=== PATIENT | female | born 2000 | race Caucasian/White ===

== ENCOUNTER 2021-06-11 22:12 | Emergency (ER) | payer OTHER, SELFPAY ==
[2021-06-11 22:47] LABS: Urine Blood Negative (Negative); Urine Glucose Negative (Negative); Urine Protein Negative (Negative); Urine Specific Gravity 1.015 (1.005-1.030); Urine pH 8.5 (5.0-7.0)
[2021-06-11 23:01] LABS: Urine Specific Gravity/Preg 1.015 (1.005-1.030)
[2021-06-11 23:26] LABS: Absolute Lymphocytes (CBC) 1.7 K/uL (0.7-4.9); Basophils % 0.4 % (0-1.3); Hematocrit 40.9 % (36.0-45.0); Lymphocytes % 23.1 % (15.3-44.8); MPV 7.1 fL (7.6-11.3); RBC Red Blood Cell Count 4.31 M/uL (3.86-4.86)
[2021-06-11 23:27] LABS: Protime INR 1.16
[2021-06-11 23:40] LABS: ALT/SGPT 32 U/L (12-78); AST/SGOT 20 U/L (15-37); Albumin 4.3 g/dL (3.4-5.0); Alkaline Phosphatase 45 U/L (45-117); BUN Blood Urea Nitrogen 6 mg/dL (7-18); Bicarbonate 28 mmol/L (21-32); Bilirubin Direct 0.1 mg/dL (0-0.2); Bilirubin Total 0.5 mg/dL (0.2-1.0); Glucose Level 95 mg/dL (74-106); Potassium 3.6 mmol/L (3.5-5.1); Protein, Total 7.8 g/dL (6.4-8.2); Sodium Level 145 mmol/L (136-145)
[2021-06-11 23:41] LABS: Barbiturates NEGATIVE (NEGATIVE); Benzodiazepines NEGATIVE (NEGATIVE); Cocaine NEGATIVE (NEGATIVE); METHAMPHETAM NEGATIVE (NEGATIVE); Methadone NEGATIVE (NEGATIVE); Opiates NEGATIVE (NEGATIVE); Phencyclidine NEGATIVE (NEGATIVE); THC Cannibis POSITIVE (NEGATIVE)
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
--- NOTE | 2021-06-12 01:31 | EDPHYS ---
Physician Documentation [facility] Name: Maeve Bush Age: 21 yrs Sex: Female : 2000 Arrival Date: 06/11/2021 Time: 22:14 Bed 4 Private MD: ED Physician Jose Antonio Doss HPI: 06/11 23:06 This 21 yrs old Female presents to ER via Ambulatory with complaints of pm1 Probable Seizure. 23:06 The patient presents after having a possible seizure episode. Character of seizure(s): pm1 Loss of consciousness: the patient did not lose consciousness, Motor activity: generalized, shaking all over, Incontinence: none, Apnea: the patient did not experience apnea, Circulation: the patient did not experience evidence of pulse disturbance. Seizure onset: just prior to arrival. Context: the seizure(s) was witnessed, by a significant other, occurred at home, Contributing factors: recent alcohol abuse. Seizure Hx: the patient has no previous seizure history. Associated injury: Head/face: pain, Neck: pain. Current symptoms: headache. The patient has not experienced similar symptoms in the past. The patient has not recently seen a physician. 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 Flu vaccine is not up to date. - Social history:: Smoking status: unknown Patient uses MARIJUANA OCCASIONALLY. ROS: 23:06 Constitutional: Negative for fever, chills, and weight loss. pm1 23:06 Cardiovascular: Negative for chest pain, palpitations, and edema, Respiratory: Negative for shortness of breath, cough, wheezing, and pleuritic chest pain, Abdomen/GI: Negative for abdominal pain, nausea, vomiting, diarrhea, and constipation, Back: Negative for injury and pain, MS/Extremity: Negative for injury and deformity, Skin: Negative for injury, rash, and discoloration. 23:06 Neck: Positive for tenderness, of the neck, Negative for bony tenderness. 23:06 Neuro: Positive for headache, Negative for numbness, tingling, weakness. 23:06 All other systems are negative. Exam: 23:06 Constitutional: This is a well developed, well nourished patient who is awake, alert, pm1 and in no acute distress. Head/Face: Normocephalic, atraumatic. 23:06 Eyes: Exam is negative for acute changes, Extraocular movements: no acute changes, Sclera: no acute changes, icterus, is not appreciated. 23:06 ENT: Exam is negative for acute changes, Mouth: no acute changes, Lips: normal, moist, Oral mucosa: normal, pink and intact, moist. 23:06 Neck: Exam negative for acute changes, ROM/movement: is normal, is supple. 23:06 Cardiovascular: Exam negative for acute changes, Rate: normal, Rhythm: regular, Pulses: no pulse deficits are appreciated, Heart sounds: normal, normal S1and S2, Edema: is not appreciated. 23:06 Respiratory: Exam negative for acute changes, the patient does not display signs of respiratory distress. 23:06 Abdomen/GI: Exam negative for acute changes, Inspection: abdomen appears normal, Palpation: abdomen is soft and non-tender, in all quadrants. 23:06 Musculoskeletal/extremity: Exam is negative for acute changes, ROM: no acute changes, Circulation is intact in all extremities. 23:06 Neuro: Exam negative for acute changes, Orientation: is normal, Mentation: is normal, Cranial nerves: CN II- XII are normal as tested, Cerebellar function: normal finger to nose testing, Motor: is normal, moves all fours, strength is 5/5 in all extremities. Vital Signs: 22:27 BP 128 / 81; Pulse 66; Resp 18; Temp 98.0; Pulse Ox 98% ; Weight 54.88 kg; Height 5 ft. dc2 0 in. (152.40 cm); Pain 3/10; 22:35 BP 128 / 81; Pulse 61; Resp 16; Pulse Ox 100% ; dc2 23:31 BP 143 / 70; Pulse 65; Resp 18; Pulse Ox 99% on R/A; lh3 06/12 01:46 BP 105 / 70; Pulse 61; Resp 18; Pulse Ox 99% on R/A; lh3 06/11 22:27 Body Mass Index 23.63 (54.88 kg, 152.40 cm) dc2 NIH Stroke Scale Scores: 06/11 23:31 NIHSS Score: 0 lh3 [place] Coma Score: 22:34 Eye Response: spontaneous(4). Verbal Response: oriented(5). Motor Response: obeys dc2 commands(6). Total: 15. 23:31 Eye Response: spontaneous(4). Verbal Response: oriented(5). Motor Response: obeys lh3 commands(6). Total: 15. MDM: 22:57 Patient medically screened. pm1 06/12 00:50 Data reviewed: vital signs. Data interpreted: Pulse oximetry: on room air is 99 %. pm1 Interpretation: normal. 01:29 Counseling: I had a detailed discussion with the patient and/or guardian regarding: the pm1 historical points, exam findings, and any diagnostic results supporting the discharge/admit diagnosis, lab results, radiology results, the need for outpatient follow up, to return to the emergency department if symptoms worsen or persist or if there are any questions or concerns that arise at home. 01:41 ED course: Patient without any seizures during ER stay. Patient's symptoms likely pm1 related to consumption of alcohol. 06/11 22:46 Order name: Urine Dipstick-Ancillary; Complete Time: 23:04 EDMS 06/11 22:48 Order name: Urine --Ancillary (enter results) ds4 06/11 22:48 Order name: Urine --Ancillary; Complete Time: 23:04 EDMS 06/11 23:04 Order name: Acetaminophen pm1 06/11 23:04 Order name: Basic Metabolic Panel pm1 06/11 23:04 Order name: CBC with Diff pm1 06/11 23:04 Order name: ETOH Level; Complete Time: 23:52 pm1 06/11 23:04 Order name: Hepatic Function; Complete Time: 23:52 pm1 06/11 23:04 Order name: PT-INR; Complete Time: 23:34 pm1 06/11 23:04 Order name: Ptt, Activated; Complete Time: 23:34 pm1 06/11 23:04 Order name: Salicylate; Complete Time: 00:18 pm1 06/11 23:04 Order name: Urine Drug Screen; Complete Time: 23:52 pm1 06/11 23:04 Order name: Acetaminophen Level; Complete Time: 23:52 EDMS 06/11 23:04 Order name: Basic Metabolic Panel; Complete Time: 23:52 EDMS 06/11 23:04 Order name: EKG; Complete Time: 23:04 pm1 06/11 23:04 Order name: EKG - Nurse/Tech; Complete Time: 23:34 pm1 06/11 23:04 Order name: IV Saline Lock; Complete Time: 23:34 pm1 06/11 23:04 Order name: Labs collected and sent; Complete Time: 23:34 pm1 06/11 23:04 Order name: Suicide Screening ([place]); Complete Time: 23:34 pm1 06/11 23:04 Order name: Urine Dipstick-Ancillary (obtain specimen); Complete Time: 23:34 pm1 06/11 23:04 Order name: CT Head C Spine pm1 06/11 23:04 Order name: CBC with Automated Diff; Complete Time: 23:34 EDMS Administered Medications: No medications were administered Point of Care Testing: Urine : 06/11 23:31 hCG Reading: Negative; Control Reading: Positive; lh3 Disposition: 06/12 05:06 Co-signature as Attending Physician, Jose Antonio Doss MD. pkl Disposition Summary: 06/12/21 01:30 Discharge Ordered Location: Home pm1 Problem: new pm1 Symptoms: have improved pm1 Condition: Stable pm1 Diagnosis - Alcohol abuse pm1 Followup: pm1 - With: Emergency Department - When: As needed - Reason: Worsening of condition Followup: pm1 - With: Private Physician - When: 2 - 3 days - Reason: Recheck today's complaints, Continuance of care, Re-evaluation by your physician Followup: pm1 - With: Chaim Mcqueen MD - When: 2 - 3 days - Reason: Recheck today's complaints, Continuance of care, Re-evaluation by your physician Discharge Instructions: - Discharge Summary Sheet pm1 - Alcohol Intoxication pm1 Forms: - Medication Reconciliation Form pm1 - Thank You Letter pm1 - Antibiotic Education pm1 - Prescription Opioid Use pm1 NIH Stroke Scale - NIH Stroke Score Date: 06/11/2021 Time: 23:31 Total Score = 0 1a. Level of Consciousness (LOC) - 0(Alert) 1b. Level of Consciousness (LOC) (Month \T\ Age) - 0(Both) 1c. LOC Commands (Open \T\ Closes Eyes/Biological Sciences Professor) - 0(Both) 2. Best Gaze (Lateral Gaze Paresis) - 0(Normal) 3. Visual Field Loss - 0(No visual loss) 4. Facial Palsy - 0(Normal) 5a. Left Arm: Motor (10-second hold) - 0(No drift) 5b. Right Arm: Motor (10-second hold) - 0(No drift) 6a. Left Leg: Motor (5-second hold - always test supine) - 0(No drift) 6b. Right Leg: Motor (5-second hold - always test supine) - 0(No drift) 7. Limb Ataxia (finger/nose \T\ heel/katz - test with eyes open) - 0(Absent) 8. Sensory Loss (pinprick arms/legs/face) - 0(Normal) 9. Best Language: Aphasia (description/naming/reading) - 0(No aphasia) 10. Dysarthria (speech clarity - read or repeat words) - 0(Normal) 11. Extinction and Inattention (visual/tactile/auditory/spatial/personal) - 0(No abnormality) Initials: 3 Signatures: Dispatcher [employer] Jose Antonio Woo MD MD pkl Cristo Chavez, SARA LEAD PONY RIDER pm1 Promise Dawn, RN RN lh3 Sonali Stark RN RN dc2
[2021-06-12 01:57] VITALS: TEMP 98
[2021-06-12 01:59] VITALS: O2SAT 99
[2021-06-12 02:01] VITALS: BP 105/70
--- NOTE | 2021-06-12 08:58 | EKG ---
Test Date: 2021-06-11 Test Time: 22:59:55 Airport Clerk: COTY MEASUREMENT RESULTS: Intervals: Rate: 61 WV: 168 QRSD: 80 QT: 436 QTc: 438 [place]: P: 62 WV: 168 QRS: 77 T: 76 INTERPRETIVE STATEMENTS: Normal sinus rhythm with sinus arrhythmia Normal ECG No previous ECG available for comparison Electronically Signed On 06-12-21 08:57:16 CDT by Nikolai Salazar
--- NOTE | 2021-06-12 13:22 | RAD REPORT ---
EXAM DESCRIPTION: CT - Head C Spine Mpr Wo Con - 06/12/2021 7:11 am CLINICAL HISTORY: 21 years, Female, Seizure;Pain COMPARISON: None. FINDINGS: Multiple transaxial tomograms of the brain were obtained from the base of the skull to the vertex without contrast. 2-D multiplanar reformats and the coronal and sagittal plane were performed and reviewed. Subsequent multiple axial CT images through the cervical spine were obtained at 2 mm slice thickness at 2 mm interval reconstruction. In addition 2-D multiplanar reformats and the sagittal coronal plane were performed and reviewed. This exam was performed according to our departmental dose-optimization protocol, which includes auto mated exposure control, adjustment of the mA and/or kV according to patient size and/or use of iterat yousif reconstruction technique. CT head: Brain parenchyma as well as the frost and white matter differentiation demonstrate to be unre markable. There is no midline shift and/or mass effect. There is no evidence for acute hemorrhage and /or infarction. Lateral ventricles and cisterns displace normal appearance. No intra or extra axi al fluid collections were seen. The calvarium is intact with no evidence for fracture. The visualized portions of the paranasal sinuses and orbits demonstrate to be clear. CT C-spine: The alignment, vertebral body heights, and disc spaces are normal. There is no evidence of fracture or subluxation. There is no significant degenerative changes. The spinal canal demonstra te no evidence for significant stenosis. Neural foramina demonstrate to be unremarkable. The uncovert ebral joints demonstrate to be normal. There is no prevertebral soft tissue swelling. Sagittal hamida nal reformatted images demonstrate no subluxation or bony abnormalities. IMPRESSION: No evidence for acute intracranial hemorrhage. No evidence for acute fracture or subluxation of the cervical spine. Electronically signed by: Kenyon Galeana MD 06/11/2021 11:49 PM CDT Due to temporary technical issues with the PACS/Fluency reporting system, reports are being signed by the in house radiologist without review as a courtesy to ensure prompt reporting. The interpreting r adiologist is fully responsible for the content of the report.
== END 2021-06-12 01:49 | disposition home or self-care (01) ==
LOC: ER 22:12
DX: F10.10 Alcohol abuse, uncomplicated (principal)
CPT/HCPCS: 36415; 70450; 72125; 80048; 80076; 80307; 80320; 80329; 81003; 81025; 85025; 85610; 85730; 93005; 99284

== ENCOUNTER 2024-12-25 07:12 | Emergency (ER) | payer SELFPAY ==
--- OUTSIDE RECORDS SUMMARY | 2024-12-25 07:16 | XMS REPORT | Continuity of Care Document ---
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 )( Subarachnoid Hemorrhage Risk factors reviewed )( IC Mass Lesion Risk factors reviewed Portions of this section were scribed by Kalpesh Pagan on 03/04/19 at 1936 Review of Systems ROS Statements All systems rev neg except as marked. Focused Review of Systems Constitutional Denies: Fever. Eyes Reports: Photophobia. GI Reports: Nausea, Vomiting. Neurologic Reports: Headache. Free Text ROS Notes Free Text ROS Notes Reports hyperacusis Portions of this section were scribed by Kalpesh Pagan on 03/04/19 at 1936 Past Medical History - Adult Stated Complaint VOMITTING, LIGHTHEADED, DIZZY, HEAD ACHE Allergies Coded Allergies: benzonatate (Intermediate, RASHES 03/04/19) latex (Intermediate, RASHES 03/04/19) beeswax (SWELLING 05/12/13) Home Medications Reported Medications No Known Home Medications Pt reports no significant: Past surgical history Past Medical History: Reports: Headache disorder. Smoking status for patients 13 years old or older: Current every day smoker Portions of this section were scribed by Kalpesh Pagan on 03/04/19 at 2126 Physical Exam Vital Signs Vital Signs First Documented: Result Date Time Pulse Ox 99 03/04 1952 B/P 124/81 03/04 1952 B/P Mean 95 03/04 1952 O2 Delivery Room air 03/04 1952 Temp 36.6 03/04 1952 Pulse 61 03/04 1952 Resp 18 03/04 1952 Last Documented: Result Date Time Pulse Ox 97 03/04 2341 B/P 102/64 03/04 2341 B/P Mean 76 03/04 2341 O2 Delivery Room air 03/04 2341 Temp 37.0 03/04 2341 Pulse 52 03/04 2341 Resp 18 03/04 2341 Review of Vital Signs Reviewed Focused PE General/Const General/Const Awake, Alert, Not toxic appearing MS Head Head Normocephalic Eyes Eyes PERRL, EOMI, No scleral icterus, Conjunctiva NL Ears/Nose/Throat Ears/Nose/Throat Airway patent, Mucous membranes moist MS Neck Neck Supple, No meningismus, Full range of motion, No adenopathy Resp/Chest Respiratory/Chest Breath sounds NL, No respiratory distress, No rales, No rhonchi, No wheezing Cardiovascular Cardiovascular Heart rate NL, Regular rhythm, Heart sounds NL, No gallop, No murmurs, No rubs, Pulses = bilaterally Abdomen/GI Abdomen/GI Soft, Non-tender, No guarding, No rebound, No distention Skin Skin No rash, Warm, Dry, Intact Neurologic Neurologic Oriented X3, Speech NL, No motor deficits, No sensory deficits, CN II - XII intact Psychiatric Psychiatric Affect NL, Mood NL Additional PE MS Lower Extrem Lower Ext/Pelvis/MS Inspection NL, No edema Portions of this section were scribed by Kalpesh Pagan on 03/04/19 at 2345 Interpretation Diagnostics Lab Results Interpretation Results Laboratory Tests 03/04/192019: [Embedded Image Not Available] Laboratory Tests: 03/04 2020 Chemistry Sodium (134 - 147 mEq/L) 140 Potassium (3.4 - 5.0 mEq/L) 3.5 Chloride (100 - 108 mEq/L) 107 Carbon Dioxide (21 - 33 mEq/L) 26 Anion Gap (0 - 20) 11 BUN (7 - 18 mg/dL) 6 L Creatinine (0.6 - 1.3 mg/dL) 0.7 Glomerular Filtr Rate (110 - 120) 106.7 L Glucose (70 - 110 mg/dL) 93 Calcium (8.0 - 10.5 mg/dL) 9.0 Serum , Qual (NEGATIVE) SERUM NEGATIVE Hematology WBC (4.5 - 11.0 x10 3/uL) 14.04 H RBC (3.54 - 5.02 x10 6/uL) 4.19 Hgb (11.0 - 15.0 g/dL) 13.1 Hct (33.0 - 45.0 %) 37.7 MCV (81.0 - 99.0 fL) 90.0 MCH (27.0 - 33.0 pg) 31.3 MCHC (33.0 - 37.0 g/dL) 34.7 RDW (11.5 - 14.5 %) 11.9 Plt Count (150 - 400 x10 3/uL) 238 MPV (7.0 - 9.0 fL) 9.5 H Neut % (Auto) (56.0 - 77.0 %) 83.8 H Lymph % (Auto) (14.0 - 32.0 %) 10.2 L [place] % (Auto) (4.8 - 9.0 %) 4.8 Eos % (Auto) (0.3 - 3.7 %) 0.3 Baso % (Auto) (0.0 - 2.0 %) 0.4 Neut # (Auto) (2.0 - 7.6 x10 3/uL) 11.78 H Lymph # (Auto) (1.0 - 3.8 x10 3/uL) 1.43 [place] # (Auto) (0.1 - 0.8 x10 3/uL) 0.67 Eos # (Auto) (0.0 - 0.2 x10 3/uL) 0.04 Baso # (Auto) (0.0 - 0.2 x10 3/uL) 0.05 Abs Immat Gran (auto) (0.00 - 0.03 x10 3/uL) 0.07 H Add Manual Diff NO Immature Gran % (0.0 - 2.0 %) 0.5 Nucleated RBC % (0 - 0 %) 0.0 Nucleated RBCs # (Man) (0.0 - 0.1 x10 3/uL) 0.00 Urines Urine Color (YEL/STRAW) YELLOW Urine Appearance (CLEAR) SL CLOUDY Urine pH (5.0 - 7.0) 7.0 Ur Specific [place] (1.005 - 1.030) 1.014 Urine Protein (NEGATIVE) NEGATIVE Urine Glucose (UA) (NEGATIVE) NEGATIVE Urine Ketones (NEGATIVE) TRACE H Urine Blood (NEGATIVE) NEGATIVE Urine Nitrite (NEGATIVE) NEGATIVE Urine Bilirubin (NEGATIVE) NEGATIVE Urine Urobilinogen (0.2 - 1.0 mg/dL) 0.2 Ur Leukocyte Esterase (NEGATIVE) NEGATIVE Urine RBC (0 - 3 RBC/HPF) 0-3 Urine WBC (0 - 3 WBC/HPF) 0-3 Ur Squamous Epith Cells (NONE SEEN /HPF) 6-10 H Urine Bacteria (NONE SEEN /HPF) TRACE Urine Mucus (NONE SEEN /LPF) TRACE Lab Statement Laboratory studies reviewed and considered in the medical decision-making. Point of Care Testing Pulse Oximetry Pulse Ox % 99 On: Room air Interpretation Interpreted by me, Pulse oximetry normal Time 1951 Test Negative - serum HCG Portions of this section were scribed by Kalpesh Pagan on 03/04/19 at 2347 Re-Evaluation MDM Free Text MDM Notes Additional Text #N/V in setting of headache with photophobia; hx of similar headaches before in the past Vitals are all normal and patient is uncomfortable due to nausea but normal neuro exam, abd is soft as well ED work up very reassuring, no e/o significant electrolyte abnormalities WBC of 14K but no other SIRS criteria present She was treated aggressively with nausea and headache medications with marked improvement of symptoms Will attempt ongoing outpatient management of suspected migraine headaches and given info and referral to neurologists Careful and detailed return precautions provided for when to return sooner to ED for rpeat eval )( Re-Evaluation/Progress #1 Text/Dict Note Pt is feeling much better. She is ambulating in the ED. She is tolerating PO. Would like to go home. Denies any ongoing vomiting, headache, no abdominal pains. I explained the results of all of our findings here today with patient and answered all questions that patient had regarding their most likely diagnosis. I emphasized the need for close outpatient follow up and care from primary care provider/specialist and went through careful and detailed return precautions with patient for when to come back to the emergency department. Patient expressed full understanding of such and agrees with plan for discharge today. Feel patient is stable and appropriate for discharge and ongoing management of condition at home at this time. Time of Re-Eval 2336 )( Re-Eval Status Improved ED Course Medication(s) Ordered Medication(s) Ordered: Antihistamine Drugs Sig/Harmony Start time Last Medication Dose Route Stop Time Status Admin Diphenhydramine HCl 25 MG X1ED STA 03/04 1944 DC 03/04 IV 03/04 Electrolytic, Caloric, And Gerald Sig/Harmony Start time Last Medication Dose Route Stop Time Status Admin Sodium Chloride 0 ASDIR PRN 03/04 1945 DCD IV 03/05 1844 Sodium Chloride 1,000 ML X1ED STA 03/04 1944 DC 03/04 IV 03/04 Gastrointestinal Drugs Sig/Harmony Start time Last Medication Dose Route Stop Time Status Admin Metoclopramide HCl 10 MG X1ED STA 03/04 1944 DC 03/04 IV 03/04 Portions of this section were scribed by Kalpesh Pagan on 03/04/19 at 2345 Patient Discharge Departure Vital Signs/Condition Vital Signs First Documented: Result Date Time Pulse Ox 99 03/04 1952 B/P 124/81 03/04 1952 B/P Mean 95 03/04 1952 O2 Delivery Room air 03/04 1952 Temp 36.6 03/04 1952 Pulse 61 03/04 1952 Resp 18 03/04 1952 Last Documented: Result Date Time Pulse Ox 97 03/04 2341 B/P 102/64 /2340 B/P Mean 76 03/04 2341 O2 Delivery Room air 03/04 2341 Temp 37.0 03/04 2341 Pulse 52 03/04 2341 Resp 18 03/04 2341 All vital signs available at the time of this entry have been reviewed. Condition Stable Clinical Impression Clinical Impression Primary Impression: Headache Secondary Impressions: Nausea and vomiting Disposition Decision Discharge )( Discharged to Home Yes )( Time 2337 )( Date 03/04/19 Discharge/Care Plan Counseled Regarding Diagnosis, Lab results, Prescriptions, Need for follow-up, When to return to ED Prescriptions reglan Prescriptions Reviewed Risks, Benefits, Alternative treatment Quality Measures BP F/U for HTN BP in normal range Supervising Physician Note Scribe Statement Kalpesh Pagan, 03/04/191942, scribing for and in the presence of Dr. Bob. Signed By: Kalpesh Pagan, 03/04/191942 Provider Scribed Statement I personally performed the services described in this documentation and reviewed the documentation that was dictated to the scribe(s) in my presence, and it accurately records my words and actions. Issa Bob, 03/09/19 Portions of this section were scribed by Kalpesh Pagan on 03/04/19 at 2347 at 2202 RPT #:[id number] END OF REPORT [facility]
[2024-12-25] MEDS ORDERED: AMOX/K CLAV 875 MG TAB ONE (07:39)
[2024-12-25] MEDS ORDERED: TDAP (DIPHTH,PERTUSS(ACELL),TET VAC) 0.5 ML VIAL IMVAC ONE (07:39)
--- NOTE | 2024-12-25 07:40 | ER ---
Nurse's Notes [facility] Name: Maeve Bush Age: 24 yrs Sex: Female : 2000 Arrival Date: 12/25/2024 Time: 07:12 Bed 6 Private MD: Diagnosis: Bitten by dog Presentation: 12/25 07:26 Chief complaint: Patient states: DOG BITE TO LEFT ANKLE DOG FIGHT LAST PM. bp REPORTED TO PD PROVIDER SCRIBE. Coronavirus screen: At this time, the client does not indicate any symptoms associated with coronavirus-19. Ebola Screen: No symptoms or risks identified at this time. Initial Sepsis Screen: Does the patient meet any 2 criteria? No. Patient's initial sepsis screen is negative. Does the patient have a suspected source of infection? No. Patient's initial sepsis screen is negative. Risk Assessment: Do you want to hurt yourself or someone else? Patient reports no desire to harm self or others. Onset of symptoms was December 24, 2024 at 19:30. 07:26 Method Of Arrival: Wheelchair bp 07:26 Acuity: SATISH 3 bp Triage Assessment: 07:28 Bite description: bite sustained to left lateral ankle and left medial ankle by a dog, bp animal information: Appearance: appeared well, is from animal, vaccination(s) is current, was sustained 6-12 hours ago. Animal status: known and can be quarantined, Animal control has been notified. General: Appears in no apparent distress. comfortable, Behavior is calm, cooperative, appropriate for age. Pain: Complains of pain in left lateral ankle and left medial ankle. EENT: No deficits noted. Neuro: No deficits noted. Cardiovascular: No deficits noted. Respiratory: No deficits noted. GI: No signs and/or symptoms were reported involving the gastrointestinal system. : No signs and/or symptoms were reported regarding the genitourinary system. Derm: No deficits noted. Musculoskeletal: Reports pain in left lateral ankle and left medial ankle. Injury Description: Bite sustained to left lateral ankle and left medial ankle caused by a dog, is from animal, Bruise sustained to left lateral ankle and left medial ankle. 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 - Infectious Disease History:: Denies. - Social history:: Smoking status: Patient denies any tobacco usage or history of. Screenin:[address] [facility] ED Fall Risk Assessment (Adult) History of falling in the last 3 months, bp including since admission No falls in past 3 months (0 pts) Confusion or Disorientation No (0 pts) Intoxicated or Sedated No (0 pts) Impaired Gait No (0 pts) Mobility Assist Device Used No (0 pt) Altered Elimination No (0 pt) Score/Fall Risk Level 0 - 2 = Low Risk Oriented to surroundings. Abuse screen: Denies threats or abuse. Denies injuries from another. Nutritional screening: No deficits noted. Tuberculosis screening: No symptoms or risk factors identified. Assessment: 07:54 General: Appears in no apparent distress. Behavior is calm, cooperative, appropriate bp for age. Derm: Skin is intact, is healthy with good turgor, Skin is pink, warm \T\ dry. Vital Signs: 07:26 BP 126 / 84; Pulse 62; Resp 16; Temp 97.9; Pulse Ox 100% ; bp ED Course: 07:15 Patient arrived in ED. gm2 07:17 Gildardo Canseco DO is Attending Physician. ms3 07:26 Karthik Ag, RN is Primary Nurse. bp 07:28 Triage completed. bp 07:28 Arm band placed on. bp 07:40 Rodrigo Jeong DO is Referral Physician. ms3 07:52 Patient has correct armband on for positive identification. bp 07:52 No provider procedures requiring assistance completed. Patient did not have IV access bp during this emergency room visit. Wound care: to puncture located on left medial ankle and left lateral ankle was cleaned with Hibiclens, dressed with Neosporin, Patient tolerated well. Administered Medications: 07:43 Drug: Amoxicillin-Clavulanate PO 875 mg PO once Route: PO; bp 07:43 Follow up: Response: No adverse reaction bp 07:43 Drug: Boostrix Tdap IM 0.5 ml IM once; as a single dose Route: IM; Site: right deltoid; bp 07:43 Follow up: Response: No adverse reaction bp Medication: 07:54 VIS not applicable for this client. bp Outcome: 07:40 Discharge ordered by . ms3 07:52 Discharged to home via wheelchair, with family, bp 07:52 Condition: stable 07:52 Discharge instructions given to patient, Instructed on discharge instructions, follow up and referral plans. medication usage, wound care, Demonstrated understanding of instructions, follow-up care, medications, wound care, Prescriptions given X 1, 07:55 Patient left the ED. bp Signatures: Karthik Ag RN RN bp Gildardo Canseco DO DO ms3 Shilpa Ferreira gm2
[2024-12-25 08:27] VITALS: BP 126/84; TEMP 97.9; O2SAT 100
--- NOTE | 2024-12-26 07:55 | EDPHYS ---
Physician Documentation [facility] Name: Maeve Bush Age: 24 yrs Sex: Female : 2000 Arrival Date: 12/25/2024 Time: 07:12 Bed 6 Private MD: ED Physician Gildardo Canseco HPI: 12/25 11:21 This 24 yrs old Female presents to ER via Wheelchair with complaints of Dog Bite. ms3 11:21 24-year-old female with no past medical history presents to the emergency department ms3 for dog bite to her left lower extremity that occurred last night. Patient states her dogs were fighting and she kicked one of her dogs and it bit her. Patient states the animals vaccines are up-to-date. She notes that she has already reported the dogs to animal control.. 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 - Infectious Disease History:: Denies. - Social history:: Smoking status: Patient denies any tobacco usage or history of. ROS: 11:21 Constitutional: Negative for fever, and chills. Cardiovascular: Negative for chest ms3 pain, and palpitations. Respiratory: Negative for shortness of breath, cough, wheezing, and pleuritic chest pain, Abdomen/GI: Negative for abdominal pain, nausea, vomiting, diarrhea, and constipation, MS/Extremity: Negative for injury and deformity, 11:21 Skin: Positive for laceration(s), puncture, Exam: 11:21 Constitutional: This is a well developed, well nourished patient who is awake, alert, ms3 and in no acute distress. Cardiovascular: Regular rate and rhythm with a normal S1 and S2. No gallops, murmurs, or rubs. Normal PMI, no JVD. No pulse deficits. Respiratory: Lungs have equal breath sounds bilaterally, clear to auscultation and percussion. No rales, rhonchi or wheezes noted. No increased work of breathing, no retractions or nasal flaring. Abdomen/GI: Soft, non-tender, with normal bowel sounds. No distension or tympany. No guarding or rebound. No evidence of tenderness throughout. 11:21 Skin: injury, laceration(s), Patient with multiple superficial and dermal lacerations of the left lower extremity., puncture(s), of the Left lower leg, Vital Signs: 07:26 BP 126 / 84; Pulse 62; Resp 16; Temp 97.9; Pulse Ox 100% ; bp MDM: 07:39 Medical Screening Exam initiated ms3 11:21 Differential diagnosis: superficial laceration, Puncture wound. Rabies Status: Rabies ms3 immunization is not indicated. Data reviewed: vital signs, nurses notes, and as a result, I will discharge patient. I considered the following discharge prescriptions or medication management in the emergency department Medications were administered in the Emergency Department. See MAR. Counseling: I had a detailed discussion with the patient and/or guardian regarding the historical points, exam findings, and any diagnostic results supporting the discharge/admit diagnosis, the need for outpatient follow up, to return to the emergency department if symptoms worsen or persist or if there are any questions or concerns that arise at home. Special discussion: I discussed with the patient/guardian in detail that at this point there is no indication for admission to the hospital. It is understood, however, that if the symptoms persist or worsen the patient needs to return immediately for re-evaluation. ED course: Discussed obtaining x-rays with the patient and her . Patient declines x-ray. Discussed with patient possibility of tooth and lacerations. Patient to follow-up with primary care physician 2 to 3 days. Patient given prescription for Augmentin. All questions were answered. Return precautions discussed include worsening symptoms, or any other concerns. On reevaluation left lower extremity neurovascularly intact.. Administered Medications: 07:43 Drug: Amoxicillin-Clavulanate PO 875 mg PO once Route: PO; bp 07:43 Follow up: Response: No adverse reaction bp 07:43 Drug: Boostrix Tdap IM 0.5 ml IM once; as a single dose Route: IM; Site: right deltoid; bp 07:43 Follow up: Response: No adverse reaction bp Disposition: 13:02 Chart complete. ms3 Disposition Summary: 12/25/24 07:40 Discharge Ordered Notes: Location: Home ms3 Condition: Stable ms3 Diagnosis - Bitten by dog ms3 Followup: ms3 - With: Rodrigo Jeong DO - When: 2 - 3 days - Reason: Recheck today's complaints Discharge Instructions: - Discharge Summary Sheet ms3 - Animal Bite, Adult, [id number] ms3 Forms: - Family Work Release bp - Medication Reconciliation Form ms3 - Antibiotic Education ms3 - Prescription Opioid Use ms3 - Patient Portal Instructions ms3 - Leadership Thank You Letter ms3 Prescriptions: - Augmentin 875-125 mg Oral Tablet - take 1 tablet ORAL route every 12 hours for 10 days; 20 tablet; Refills: 0, ms3 Product Selection Permitted Signatures: Karthik Ag, RN RN Gildardo Larios DO DO ms3
== END 2024-12-25 07:55 | disposition home or self-care (01) ==
LOC: ER 07:12
DX: S81.832A Puncture wound without foreign body, left lower leg, initial encounter (principal); W54.0XXA Bitten by dog, initial encounter
CPT/HCPCS: 90715; 96372; 99284